=== PATIENT | male | born 1970 | race African-American/Black ===

== ENCOUNTER → 2024-03-28 | Outpatient (CLI) | payer OTHER ==
--- NOTE | 2024-03-29 09:47 | MR ---
EXAMINATION TYPE: MR cervical spine wo con DATE OF EXAM: 03/28/2024 3:56 PM CLINICAL INDICATION:Male, 53 years old with history of M54.2 CERVICALGI, Neck pain into mario upper ext remities COMPARISON: None. TECHNIQUE: Multi planar, multi sequence imaging was performed utilizing: T1-weighted, T2-weighted, an d turbo inversion recovery imaging of the cervical spine. IV Contrast: cc (none if empty) FINDINGS: Alignment: The cervical vertebral bodies have preserved heights. Alignment is within normal limits gi anaid patient positioning. Bones: Osteophytes and disc space narrowing most pronounced at the C5-C7 vertebral levels. Cord: The spinal cord is unremarkable with regards to their signal intensity and morphology. Discs: Intervertebral disc signal is maintained. C2-C3: No significant disc pathology. The spinal canal is patent. No neural foraminal stenosis. C3-C4: No significant disc pathology. The spinal canal is patent. No neural foraminal stenosis. C4-C5: No significant disc pathology. The spinal canal is patent. No neural foraminal stenosis. C5-C6: No significant disc pathology. The spinal canal is patent. Bilateral facet and uncovertebral joint arthropathy are present with mild right neural foraminal stenosis. The left neural foramen is p atent. C6-C7: A disc osteophyte complex is present which minimally narrows the ventral subarachnoid space. Bilateral facet and uncovertebral joint arthropathy are present with moderate bilateral neural zully inal stenosis. C7-T1: No significant disc pathology. The spinal canal is patent. No neural foraminal stenosis. Other: Prominent lymph nodes in the neck which are poorly evaluated due to MRI. Lymph node measures u p to 11 mm in short axis on the left. Irregular soft tissue signal extending from skin surface to the posterior base of the neck near midline. IMPRESSION: 1. No evidence for disc herniation or significant spinal canal stenosis. 2. Mild disc degeneration with associated osteoarthritic changes. No foraminal stenosis worse at C6-C 7 bilaterally 3. Mildly enlarged left neck lymph node measuring up to 11 mm in short axis, further evaluation of th e neck with CT with IV contrast recommended. 4. Irregular soft tissue streaky signal near the base of the neck posteriorly correlate for history o f prior surgeries. Consider direct visualization.
== END | disposition home or self-care (01) ==
LOC: RADMRIMAIN 15:26
PROVIDERS: ATTEND Family Medicine
DX: M50.123 Cervical disc disorder at C6-C7 level with radiculopathy (principal); R59.0 Localized enlarged lymph nodes; M47.22 Other spondylosis with radiculopathy, cervical region
CPT/HCPCS: 72141

== ENCOUNTER → 2024-06-05 | Outpatient (CLI) | payer OTHER ==
--- NOTE | 2024-06-10 08:58 | US ---
EXAMINATION TYPE: US thyroid st tissue head/neck DATE OF EXAM: 06/05/2024 COMPARISON: MRI CLINICAL INDICATION: Male, 53 years old with history of R59.0 ENLARGED LYMPH NODES; Possible lymph no alysa visualized on MRI Bilateral lateral, midline, and posterior neck scanned, no evidence of lymphadenopathy. Limited views of thyroid appeared wnl. IMPRESSION: No distinct adenopathy present. Visualized thyroid gland appears within normal limits.
== END | disposition home or self-care (01) ==
LOC: RADUSWWP 16:16
PROVIDERS: ATTEND Family Medicine
DX: R59.0 Localized enlarged lymph nodes (principal)
CPT/HCPCS: 76536